=== PATIENT | male | born 2000 | race African-American/Black ===

== ENCOUNTER 2019-04-18 12:06 | Emergency (ER) | payer OTHER ==
[~2019-04-18] VITALS: Ht 180.3 cm; Wt 91.0 kg
[2019-04-18 12:07] VITALS: BP 132/67
[2019-04-18] MEDS ORDERED: ZOFR4TAB16 PO (12:56)
[2019-04-18] MEDS ORDERED: IBUP-1022 PO (12:56)
== END 2019-04-18 13:10 | disposition home or self-care (01) ==
LOC: M ED 12:06
DX: K29.70 Gastritis, unspecified, without bleeding (principal)